=== PATIENT | male | born 1950 | race Caucasian/White ===

== ENCOUNTER 2019-11-11 06:43 | Inpatient (IN) | payer OTHER ==
[~2019-11-11 06:43] MED LIST: BUPIVACAINE INJ/PF LIPOSOME/PF 266 MG/20 ML SDV INJ PRN; CEFAZOLIN INJ 1 GM VIAL IV PRN; IBUPROFEN 800 MG in NORMAL SALINE 250 ML IV PRN; LACTATED RINGERS 1000 ML IV PRN; LIDOCAINE 0.5% INJ-PF (5 MG/ML) 50 ML SDV SUBCUT PRN; OXYCODONE HCL SR 10 MG TABLET PO PRN; PANTOPRAZOLE SODIUM 20 MG TABLET.DR PO PRN; VANCOMYCIN HCL 1,000 MG in DEXTROSE 5%-WATER 250 ML IV PRN
[2019-11-11] MEDS ORDERED: ONDANSETRON HCL INJ/PF 4 MG/2 ML SDV ONE (06:52)
[2019-11-11] MEDS ORDERED: MIDAZOLAM 2 MG/2 ML INJ ONE (06:52)
[2019-11-11] MEDS ORDERED: PROPOFOL INJ 200 MG/20 ML VIAL IV ONE (06:52)
[2019-11-11] MEDS ORDERED: TRANEXAMIC ACID INJ/PF 1,000 MG/10 ML SDV ONE (06:52)
[2019-11-11] MEDS ORDERED: OXYCODONE HCL SR 10 MG TABLET PO ONE (07:44)
[2019-11-11] MEDS ORDERED: CEFAZOLIN INJ 1 GM VIAL ONE (07:44)
[2019-11-11] MEDS ORDERED: BUPIVACAINE INJ/PF LIPOSOME/PF 266 MG/20 ML SDV ONE (08:43)
[2019-11-11] MEDS ORDERED: PROMETHAZINE HCL INJ 25 MG/1 ML VIAL IV PRN (09:32)
[2019-11-11] MEDS ORDERED: FENTANYL CITRATE INJ/PF 100 MCG/2 ML AMPUL IV PRN ×3 (09:32)
[2019-11-11] MEDS ORDERED: MORPHINE SULFATE 10 MG/ML INJ IV PRN (09:32)
[2019-11-11] MEDS ORDERED: MEPERIDINE HCL/PF INJ 25 MG/1 ML DISP.SYRIN IV PRN (09:32)
[2019-11-11] MEDS ORDERED: DIPHENHYDRAMINE HCL 50 MG/ML VIAL IV PRN ×2 (09:32→10:04)
--- NOTE | 2019-11-11 10:03 | Operative Report ---
Operative Report DATE OF SURGERY: 11/11/19 PREOPERATIVE DIAGNOSIS: Right knee arthritis OPERATION: Right knee arthroplasty SURGEON: NAINA RODGERS ANESTHESIA: Spinal TISSUE REMOVED OR ALTERED: Bone to pathology PROCEDURE: Implants used: Femur: Jose triathlon size 5 CR femur uncemented Tibia: 5 uncemented tibia Tibial liner: 9 mm CS insert Patella: 35 mm uncemented patella Procedure with the patient supine on the operating table the right the limb is prepped and draped in a sterile fashion. The limb was elevated for exsanguination and the tourniquet inflated to 280 torr. A standard midline median parapatellar approach the knee is taken. Access is gained to the femoral canal through the intercondylar notch. Intramedullary alignment instrumentation used to resect 10 mm of distal femur in 5 of valgus. Sizing guide indicated a size 5 femur. Appropriate cutting jig is then used to fashion anterior posterior and chamfer cuts. A trial reduction femurs performed and this is judged to be adequate. Attention was next turned to the tibia. Using an extra medullary alignment system 9 millimeters was resected off the lateral tibial plateau. This is sized to a size 5 tibia. A trial reduction was now performed with a 5 femur and a 5 tibia using a[] millimeters spacer. It is full extension and central patellofemoral tracking. The articular surface the patella was next resected using an oscillating saw. All trial implants were removed. The above implants are impacted into position. The tourniquet was deflated hemostasis obtained the wound is then closed in layers using interrupted Vicryl followed by loretta. A sterile compressive dressing was applied and the patient returned to recovery room in satisfactory condition.
[2019-11-11] MEDS ORDERED: ZOLPIDEM TARTRATE 5 MG TABLET PO PRN (10:04)
[2019-11-11] MEDS ORDERED: ONDANSETRON 4 MG TAB.RAPDIS PO PRN (10:04)
[2019-11-11] MEDS ORDERED: ACETAMINOPHEN 325 MG TABLET PO PRN (10:04)
[2019-11-11] MEDS ORDERED: MAG HYDROX/AL HYDROX/SIMETH SUSP 30 ML UDCUP PO PRN (10:04)
[2019-11-11] MEDS ORDERED: RINGERS SOLUTION,LACTATED 1,000 ML IV PRN (10:04)
[2019-11-11] MEDS ORDERED: ONDANSETRON HCL INJ/PF 4 MG/2 ML SDV IV PRN (10:04)
--- NOTE | 2019-11-11 11:09 | RADIOLOGY REPORT (SQ) ---
EXAM DESCRIPTION: KNEE RIGHT 2 VIEWS COMPLETED DATE/TIME: 11/11/2019 10:50 am REASON FOR STUDY: Post OP -Long Cassette in PACU M17.11 UNILATERAL PRIMARY OSTEOARTHRITIS, RIGHT KN EE COMPARISON: None. NUMBER OF VIEWS: Two views. TECHNIQUE: AP and lateral radiographic images acquired of the right knee. LIMITATIONS: None. FINDINGS: MINERALIZATION: Normal. BONES: Status post TKA. The hardware is in anatomic alignment. There is no periprosthetic fracture. JOINT: See below. SOFT TISSUES: Intra-articular and subcutaneous emphysema. OTHER: Vascular calcifications and cutaneous surgical loretta. IMPRESSION: Status post TKA with expected immediate postoperative findings. TECHNICAL DOCUMENTATION: JOB ID: [id number] 2010 [email or web address]- All Rights Reserved Reading location - IP/workstation name: [email or web address]
[2019-11-11] MEDS ORDERED: DEXTROSE 50%-WATER SYRINGE 25 GM/50 ML DOSE IV PRN (11:30)
[2019-11-11] MEDS ORDERED: GLUCAGON,HUMAN RECOMB 1 MG INJ IM PRN (11:30)
[2019-11-11] MEDS ORDERED: DEXTROSE 40% GEL 15 GM TUBE X 2 PO PRN (11:30)
[2019-11-11] MEDS ORDERED: DEXTROSE 40% GEL 15 GM TUBE PO PRN (11:30)
[2019-11-11] MEDS ORDERED: DEXTROSE 50%-WATER SYRINGE 12.5 GM/25 ML DOSE IV PRN (11:30)
[2019-11-11] MEDS ORDERED: TRANEXAMIC ACID INJ/PF 1,000 MG/10 ML SDV IV ONE (11:30)
[2019-11-11] MEDS ORDERED: PHENYLEPHRINE HCL INJ/PF 10 MG/1 ML SDV ONE (13:47)
[2019-11-11] MEDS: OXYCODONE HCL IR 5 MG TABLET PO PRN ×2 (14:32→16:23)
[2019-11-11] MEDS: LISINOPRIL 10 MG TABLET PO SCH (16:30)
[2019-11-11] MEDS: METFORMIN HCL 500 MG TABLET PO SCH (17:05)
[2019-11-11] MEDS: CILOSTAZOL 100 MG TABLET PO SCH (17:05)
[2019-11-11] MEDS: GLIPIZIDE XL 5 MG TAB.ER.24 PO SCH (17:06)
[2019-11-11] MEDS: SENNOSIDES/DOCUSATE 8.6-50 MG 1 EACH TABLET PO SCH (17:06)
[2019-11-11] MEDS: IBUPROFEN 800 MG in NORMAL SALINE 250 ML IV SCH (17:06)
[2019-11-11] MEDS: INSULIN LISPRO 100 UNIT/ML 3 ML VIAL SUBCUT SCH ×2 (18:21→21:17)
[2019-11-11] MEDS: OXYCODONE HCL SR 10 MG TABLET PO SCH (21:19)
[2019-11-11] MEDS ORDERED: VANCOMYCIN HCL 1,000 MG in DEXTROSE 5%-WATER 250 ML IV ONE (22:05)
[2019-11-12] MEDS: IBUPROFEN 800 MG in NORMAL SALINE 250 ML IV SCH ×3 (01:09→17:43)
[2019-11-12] MEDS: OXYCODONE HCL IR 5 MG TABLET PO PRN ×3 (02:09→17:40)
[2019-11-12 05:04] LABS: HEMATOCRIT 32.4 % (37.9-51.0); HEMOGLOBIN 10.8 g/dL (13.5-17.0); MEAN CORPUSCULAR HEMOGLOBIN 28.4 pg (27.0-33.4); MEAN CORPUSCULAR HGB CONC 33.3 g/dL (32.0-36.0); MEAN CORPUSCULAR VOLUME 85 fl (80-97); PLATELET COUNT 191 10^3/uL (150-450); RED BLOOD COUNT 3.79 10^6/uL (4.35-5.55); RED CELL DISTRIBUTION WIDTH 14.5 % (11.5-14.0); WHITE BLOOD COUNT 9.4 10^3/uL (4.0-10.5)
[2019-11-12 05:34] LABS: ANION GAP 10 (5-19); BLOOD UREA NITROGEN 16 mg/dL (7-20); CALCIUM 8.2 mg/dL (8.4-10.2); CARBON DIOXIDE 23 mmol/L (22-30); CHLORIDE 102 mmol/L (98-107); GLUCOSE 218 mg/dL (75-110); POTASSIUM 4.2 mmol/L (3.6-5.0)
[2019-11-12] MEDS ORDERED: CHLORPROMAZINE HCL INJ 25 MG/1 ML AMPULE IV ONE (07:00)
--- NOTE | 2019-11-12 07:08 | PDOC DISCHARGE SUMMARY ---
Impression - Admit/DC Date/PCP Admission Date/Primary Care Provider: 11/11/19 06:43 TY GARCIA, DO Discharge Date: 11/12/19 - Additional Information Resuscitation Status: Full Code Discharge Diet: Regular Discharge Activity: Balance Activity w/Rest, No tub bath Referrals: NAINA RODGERS MD [ACTIVE STAFF] - 11/26/19 2:15 pm Home Medications: Aspirin 81 mg PO DAILY 11/06/19 Atorvastatin Calcium [Lipitor] 80 mg PO QHS 11/06/19 Cholecalciferol (Vitamin D3) [Vitamin D3 1000 Unit Tablet] 1,000 unit PO DAILY 11/06/19 Cilostazol [Pletal 100 mg Tablet] 100 mg PO BID 11/06/19 Diclofenac Sodium 75 mg PO BID 11/06/19 Folic Acid/Vit B Complex and C [Super B Complex Tablet] 1 tab PO DAILY 11/06/19 Glipizide [Glipizide Xl] 10 mg PO BID 11/06/19 Lisinopril [Zestril] 40 mg PO DAILY 11/06/19 Metformin HCl 500 mg PO BID 11/06/19 Metoprolol Succinate [Toprol Xl 50 mg Tab.sr] 50 mg PO DAILY 11/06/19 Multivit-Min/Folic/Vit K/Lycop [Men's Multivitamin Tablet] 1 tab PO DAILY 11/06/19 Pantoprazole Sodium 40 mg PO DAILY 11/06/19 Sertraline HCl 150 mg PO DAILY 11/06/19 Ubidecarenone [Coq-10] 200 mg PO DAILY 11/06/19 History of Present Illiness History of Present Illness: CECIL BENNETT JR is a 69 year old male Healthy [id number] white male with progressive right knee pain and functional disability second osteoarthritis. Patient is admitted for elective right knee arthroplasty. Hospital Course Hospital Course: Open wounds no lateral for that instrumented fusion is necessary and patient is admitted through the operating where he undergoes uncomplicated right knee arthroplasty. Is returned to the floor in satisfactory condition. He seen by physical therapy for weightbearing sterile ambulation. Overnight he developed problems with hiccups and is administered Thorazine. Compressive dressing is removed on the first postoperative day. Underlying OpSite dressing is clean dry and intact. He subsequently for discharge home with home health services and DME. Physical Exam Vital Signs: Temp Pulse Resp BP Pulse Ox 38.2 C H 108 H 18 147/55 H 90 L 11/12/19 01:13 11/12/19 01:13 11/12/19 01:13 11/12/19 01:13 11/12/19 01:13 Intake & Output 11/11/19 11/12/19 11/13/19 06:59 06:59 06:59 Intake Total 7649 Output Total 5009 Balance 2640 Weight 100.6 kg General appearance: PRESENT: no acute distress Head exam: PRESENT: normocephalic Respiratory exam: PRESENT: unlabored Cardiovascular exam: PRESENT: RRR Pulses: PRESENT: +1 pedal pulses bilateral GI/Abdominal exam: PRESENT: soft Rectal exam: PRESENT: deferred Results Laboratory Results: WBC 9.4 10^3/uL (4.0-10.5) 11/12/19 04:54 RBC 3.79 10^6/uL (4.35-5.55) L 11/12/19 04:54 Hgb 10.8 g/dL (13.5-17.0) L 11/12/19 04:54 Hct 32.4 % (37.9-51.0) L 11/12/19 04:54 MCV 85 fl (80-97) 11/12/19 04:54 MCH 28.4 pg (27.0-33.4) 11/12/19 04:54 MCHC 33.3 g/dL (32.0-36.0) 11/12/19 04:54 RDW 14.5 % (11.5-14.0) H 11/12/19 04:54 Plt Count 191 10^3/uL (150-450) 11/12/19 04:54 Sodium 135.3 mmol/L (137-145) L 11/12/19 04:54 Potassium 4.2 mmol/L (3.6-5.0) 11/12/19 04:54 Chloride 102 mmol/L (98-107) 11/12/19 04:54 Carbon Dioxide 23 mmol/L (22-30) 11/12/19 04:54 Anion Gap 10 (5-19) 11/12/19 04:54 BUN 16 mg/dL (7-20) 11/12/19 04:54 Creatinine 0.81 mg/dL (0.52-1.25) 11/12/19 04:54 Est GFR ( Amer) > 60 (>60) 11/12/19 04:54 Est GFR (MDRD) Non-Af > 60 (>60) 11/12/19 04:54 Glucose 218 mg/dL (75-110) H 11/12/19 04:54 POC Glucose 248 mg/dL (70-110) H 11/12/19 05:58 Calcium 8.2 mg/dL (8.4-10.2) L 11/12/19 04:54 Impressions: Knee X-Ray 11/11/19 10:06 IMPRESSION: Status post TKA with expected immediate postoperative findings. Plan Plan of Treatment: Discharge home on a weightbearing as tolerated basis with home health services and DME. Follow-up with Dr. Rodgers and [facility] for surgery in 2 weeks for staple removal. Stroke Is this a Stroke Patient?: No Stroke Pt being discharged on Anti-thrombolytic therapy?: Yes Acute Heart Failure - Is this a Heart Failure Patient?: No
[2019-11-12] MEDS ORDERED: CHLORPROMAZINE HCL INJ 25 MG/1 ML AMPULE ONE (07:24)
[2019-11-12] MEDS: INSULIN LISPRO 100 UNIT/ML 3 ML VIAL SUBCUT SCH ×4 (07:37→21:44)
[2019-11-12] MEDS: METOPROLOL SUCCINATE 50 MG TAB.SR.24H PO SCH ×4 (08:01→09:56)
[2019-11-12] MEDS ORDERED: METOPROLOL TARTRATE PF/INJ 5 MG/5 ML SDV IV ONE (08:45)
[2019-11-12 08:48] LABS: ARTERIAL BLOOD BASE EXCESS -3.3 mmol/L; ARTERIAL BLOOD H2CO3 1.08 mmol/L (1.05-1.35); ARTERIAL BLOOD HCO3 21.2 mmol/L (20-24); ARTERIAL BLOOD O2 SATURATION 97.8 % (94-98); ARTERIAL BLOOD PCO2 35.8 mmHg (35-45); ARTERIAL BLOOD PH 7.39 (7.35-7.45); ARTERIAL BLOOD PO2 105.7 mmHg (80-100); ARTERIAL BLOOD TOTAL CO2 22.3 mmol/L (23-27)
[2019-11-12 08:54] LABS: ARTERIAL BLOOD FIO2 100%
[2019-11-12] MEDS ORDERED: NORMAL SALINE 500 ML IV PRN (09:33)
--- NOTE | 2019-11-12 09:39 | RADIOLOGY REPORT (SQ) ---
EXAM DESCRIPTION: CHEST SINGLE VIEW COMPLETED DATE/TIME: 11/12/2019 8:48 am REASON FOR STUDY: CLINICAL AIDE COMPARISON: None. EXAM PARAMETERS: NUMBER OF VIEWS: One view. TECHNIQUE: Single frontal radiographic view of the chest acquired. RADIATION DOSE: NA LIMITATIONS: None. FINDINGS: LUNGS AND PLEURA: Suboptimal inspiration. No opacities, masses or pneumothorax. No pleura l effusion. MEDIASTINUM AND HILAR STRUCTURES: No masses. Contour normal. HEART AND VASCULAR STRUCTURES: Heart normal in size. Normal vasculature. BONES: No acute findings. HARDWARE: None in the chest. OTHER: No other significant finding. IMPRESSION: NO ACUTE RADIOGRAPHIC FINDING IN THE CHEST. TECHNICAL DOCUMENTATION: JOB ID: [id number] 2010 [employer]- All Rights Reserved Reading location - IP/workstation name: [email or web address]
[2019-11-12] MEDS: SENNOSIDES/DOCUSATE 8.6-50 MG 1 EACH TABLET PO SCH ×2 (09:42→17:41)
[2019-11-12] MEDS: METFORMIN HCL 500 MG TABLET PO SCH ×2 (09:42→17:41)
[2019-11-12] MEDS: PANTOPRAZOLE SODIUM 40 MG TABLET.DR PO SCH (09:42)
[2019-11-12] MEDS: GLIPIZIDE XL 5 MG TAB.ER.24 PO SCH ×2 (09:42→17:41)
[2019-11-12] MEDS: ATORVASTATIN CALCIUM 80 MG TABLET PO SCH (09:43)
[2019-11-12] MEDS: ASPIRIN 81 MG TABLET, CHEWABLE PO SCH (09:43)
[2019-11-12] MEDS: PRENATAL VITAMIN W DHA CAPSULE PO SCH (09:56)
[2019-11-12] MEDS ORDERED: METOPROLOL SUCCINATE 50 MG TAB.SR.24H PO SCH (10:00)
[2019-11-12] MEDS ORDERED: LISINOPRIL 10 MG TABLET PO SCH (10:00)
[2019-11-12] MEDS ORDERED: (PENDING PHARMACY ID) (Lisinopril [Zestril] 40 MG) PO SCH (10:00)
[2019-11-12] MEDS: LISINOPRIL 10 MG TABLET PO SCH (10:29)
[2019-11-12] MEDS: OXYCODONE HCL SR 10 MG TABLET PO SCH ×2 (10:41→21:43)
[2019-11-12] MEDS: SERTRALINE HCL 50 MG TABLET PO SCH (10:41)
[2019-11-12] MEDS: CILOSTAZOL 100 MG TABLET PO SCH ×2 (10:41→17:41)
[2019-11-12] MEDS ORDERED: BACLOFEN 10 MG TABLET PO PRN (13:19)
--- NOTE | 2019-11-12 15:14 | PDOC CONSULTATION ---
Consultation Consult Date: 11/12/19 Attending physician:: ANINA DUNCAN Provider Consulted: HARMAN FOSS Consult reason:: hiccups History of Present Illness Admission Date/PCP: 11/11/19 06:43 TY GARCIA DO Patient complains of: hiccups History of Present Illness: CECIL BENNETT JR is a 69 year old male with a history of type 2 diabetes yani litus, hypertension, GERD, who presents to the hospital for elective right total knee replacement for his knee arthritis. Procedure was done yesterday. Patient was reported to have received spinal anesthesia and propofol/Versed were used. Patient notably did not get intubated. Patient developed several bouts of hiccups overnight into today. Received some Thorazine this morning but it caused patient to be very unresponsive and lethargic as a result of which rapid response was called earlier today. Patient was stabilized and chest x-ray performed showed no acute abnormality. 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 Hospitalist service consulted for management of hiccups. Patient reports that he barely ever has hiccups when at home and may be gets it once in 1 or 2 months if so and that his hiccups only started after the procedure yesterday. Patient denies any sore throat. He does endorse history of indigestion and GERD. Denies any weakness in arms or legs or other extremities. Past Medical History Cardiac Medical History: Reports: Hypertension Denies: Atrial Fibrillation, Congestive Heart Failure, Coronary Artery Disease, Myocardial Infarction, Hyperlipidema, Peripheral Vascular Disease, Heart Murmur Pulmonary Medical History: Denies: Asthma, Bronchitis, Chronic Obstructive Pulmonary Disease (COPD), Pneumonia, Sleep Apnea Neurological Medical History: Denies: Seizures Endocrine Medical History: Reports: Hypothyroidism Denies: Hyperthyroidism GI Medical History: Reports: Gastroesophageal Reflux Disease Denies: Crohn's Disease, Hiatal Hernia Musculoskeltal Medical History: Reports: Arthritis Denies: Fibromyalgia Psychiatric Medical History: Reports: Post Traumatic Stress Disorder Denies: Bipolar Disorder, Depression Hematology: Denies: Anemia Past Surgical History Past Surgical History: Reports: Herniorrhaphy Denies: Appendectomy, Cholecystectomy, Colostomy, Coronary Artery Bypass Graft, Gastric Bypass Surgery, Pacemaker, Tonsillectomy Social History Smoking Status: Former Smoker Hx Recreational Drug Use: No Hx Prescription Drug Abuse: No Family History Family History: Other - Heart disease in his father Parental Family History Reviewed: Yes Children Family History Reviewed: NA Sibling(s) Family History Reviewed.: NA Medication/Allergy Home Medications: Cholecalciferol (Vitamin D3) [Vitamin D3 1000 Unit Tablet] 1,000 unit PO DAILY 11/06/19 Folic Acid/Vit B Complex and C [Super B Complex Tablet] 1 tab PO DAILY 11/06/19 Multivit-Min/Folic/Vit K/Lycop [Men's Multivitamin Tablet] 1 tab PO DAILY 11/06/19 RX: Aspirin 81 mg PO DAILY 11/06/19 RX: Atorvastatin Calcium [Lipitor] 80 mg PO QHS 11/06/19 RX: Cilostazol [Pletal 100 mg Tablet] 100 mg PO BID 11/06/19 RX: Diclofenac Sodium 75 mg PO BID 11/06/19 RX: Glipizide [Glipizide Xl] 10 mg PO BID 11/06/19 RX: Lisinopril [Zestril] 40 mg PO DAILY 11/06/19 RX: Metformin HCl 500 mg PO BID 11/06/19 RX: Pantoprazole Sodium 40 mg PO DAILY 11/06/19 RX: Sertraline HCl 150 mg PO DAILY 11/06/19 Ubidecarenone [Coq-10] 200 mg PO DAILY 11/06/19 Metoprolol Tartrate [Lopressor 50 mg Tablet] 50 mg PO DAILY 11/12/19 Allergies/Adverse Reactions: chlorpromazine [From Thorazine] Allergy (Severe, Verified 11/12/19 13:09) Passed out Review of Systems Constitutional: ABSENT: chills Eyes: ABSENT: visual disturbances Nose, Mouth, and Throat: ABSENT: headache(s) Cardiovascular: ABSENT: chest pain Respiratory: ABSENT: dyspnea Gastrointestinal: ABSENT: abdominal pain, nausea, vomiting Musculoskeletal: ABSENT: muscle weakness Integumentary: ABSENT: diaphoresis Neurological: ABSENT: confusion, dizziness, focal weakness, tingling Psychiatric: ABSENT: anxiety Endocrine: ABSENT: polydipsia Hematologic/Lymphatic: ABSENT: lymphadenopathy Physical Exam Vital Signs: Temp Pulse Resp BP Pulse Ox 98.9 F 100 18 113/55 L 94 11/12/19 10:00 11/12/19 10:00 11/12/19 10:00 11/12/19 10:00 11/12/19 10:00 Intake & Output 11/11/19 11/12/19 11/13/19 06:59 06:59 06:59 Intake Total 7649 990 Output Total 5009 300 Balance 2640 690 Weight 100.6 kg General appearance: PRESENT: no acute distress, cooperative Head exam: PRESENT: normocephalic Eye exam: PRESENT: EOMI, other - Narrow pupils bilaterally about 2 mm Mouth exam: PRESENT: neck supple Neck exam: ABSENT: JVD, meningismus Respiratory exam: PRESENT: clear to auscultation tanya, unlabored. ABSENT: tachypnea, wheezes Cardiovascular exam: PRESENT: +S1, +S2, systolic murmur GI/Abdominal exam: PRESENT: soft. ABSENT: rebound, rigid, tenderness Neurological exam: PRESENT: alert, awake, oriented to person, oriented to place, oriented to time, oriented to situation Psychiatric exam: ABSENT: agitated, anxious Focused psych exam: ABSENT: pressured speech Skin exam: ABSENT: jaundice Results Laboratory Results: 11/12/19 04:54 11/12/19 04:54 11/12/19 11/12/19 11/12/19 04:54 04:54 08:25 WBC 9.4 RBC 3.79 L Hgb 10.8 L Hct 32.4 L MCV 85 MCH 28.4 MCHC 33.3 RDW 14.5 H Plt Count 191 Carbonic Acid 1.08 HCO3/H2CO3 Ratio 19:1 ABG pH 7.39 ABG pCO2 35.8 ABG pO2 105.7 H ABG HCO3 21.2 ABG O2 Saturation 97.8 ABG Base Excess -3.3 FiO2 100% Sodium 135.3 L Potassium 4.2 Chloride 102 Carbon Dioxide 23 Anion Gap 10 BUN 16 Creatinine 0.81 Est GFR ( Amer) > 60 Glucose 218 H Calcium 8.2 L Impressions: Knee X-Ray 11/11/19 10:06 IMPRESSION: Status post TKA with expected immediate postoperative findings. Chest X-Ray 11/12/19 08:11 IMPRESSION: NO ACUTE RADIOGRAPHIC FINDING IN THE CHEST. Assessment and Plan - Diagnosis (1) Intractable hiccups Is this a current diagnosis for this admission?: Yes Plan: Currently patient's electrolytes look unremarkable. No evidence of uremia. Potential factors that are likely causing his hiccups include recent anesthesia and GERD. Given that his hiccups seem to have started after his surgical procedure yesterday, and that he states that he rarely gets hiccups may be once every 1 to 2 months prior to hospitalization, strongly believing that his symptoms are a side effect from anesthesia. We will try baclofen 10 mg 3 times daily as needed for hiccups. Would avoid Thorazine in light of this morning's event. Continue Protonix given history of GERD and indigestion. Can also try some Maalox for his indigestion. (2) Diabetes mellitus type 2 in obese Is this a current diagnosis for this admission?: Yes Plan: Blood glucose uncontrolled today but nurse tells me that patient was given some sugar tabs overnight. Continue metformin and glipizide and maintain sliding scale insulin. Outpatient follow-up with PCP. (3) Hypertension Qualifiers: Hypertension type: essential hypertension Qualified Code(s): I10 - Essential (primary) hypertension Is this a current diagnosis for this admission?: Yes Plan: Continue patient's lisinopril. - Plan Summary Summary: Discussed plan with Dr. Duncan - Time Time Spent with patient: 35 or more minutes
--- NOTE | 2019-11-12 17:06 | EKG REPORT ---
SEVERITY:- ABNORMAL ECG - JUNCTIONAL TACHYCARDIA : Confirmed by: Ese Glass MD 12-Nov-2019 17:06:24
[2019-11-13] MEDS: IBUPROFEN 800 MG in NORMAL SALINE 250 ML IV SCH ×2 (01:14→10:30)
[2019-11-13 05:11] LABS: HEMATOCRIT 29.7 % (37.9-51.0); HEMOGLOBIN 10.1 g/dL (13.5-17.0); MEAN CORPUSCULAR HGB CONC 33.9 g/dL (32.0-36.0); MEAN CORPUSCULAR VOLUME 86 fl (80-97); PLATELET COUNT 176 10^3/uL (150-450); RED BLOOD COUNT 3.48 10^6/uL (4.35-5.55); RED CELL DISTRIBUTION WIDTH 14.6 % (11.5-14.0); WHITE BLOOD COUNT 9.2 10^3/uL (4.0-10.5)
[2019-11-13] MEDS: INSULIN LISPRO 100 UNIT/ML 3 ML VIAL SUBCUT SCH ×2 (07:28→12:00)
[2019-11-13] MEDS: ATORVASTATIN CALCIUM 80 MG TABLET PO SCH (09:33)
[2019-11-13] MEDS: LISINOPRIL 10 MG TABLET PO SCH (09:33)
[2019-11-13] MEDS: METOPROLOL SUCCINATE 50 MG TAB.SR.24H PO SCH (09:33)
[2019-11-13] MEDS: OXYCODONE HCL SR 10 MG TABLET PO SCH (09:33)
[2019-11-13] MEDS: METFORMIN HCL 500 MG TABLET PO SCH (09:33)
[2019-11-13] MEDS: PRENATAL VITAMIN W DHA CAPSULE PO SCH (09:33)
[2019-11-13] MEDS: ASPIRIN 81 MG TABLET, CHEWABLE PO SCH (09:34)
[2019-11-13] MEDS: SERTRALINE HCL 50 MG TABLET PO SCH (09:34)
[2019-11-13] MEDS: PANTOPRAZOLE SODIUM 40 MG TABLET.DR PO SCH (09:34)
[2019-11-13] MEDS: SENNOSIDES/DOCUSATE 8.6-50 MG 1 EACH TABLET PO SCH (09:34)
[2019-11-13] MEDS: GLIPIZIDE XL 5 MG TAB.ER.24 PO SCH (09:36)
[2019-11-13] MEDS: CILOSTAZOL 100 MG TABLET PO SCH (09:36)
[2019-11-13 11:12] VITALS: BP 133/57
--- NOTE | 2019-11-13 18:52 | PDOC PROGRESS REPORT ---
Subjective Progress Note for:: 11/13/19 Subjective:: Encountered patient this morning. Patient states that hiccups have completely resolved. Patient denies any other complaints besides just pain in his knee. Reason For Visit: RIGHT KNEE ARTHRITIS Physical Exam Vital Signs: Temp Pulse Resp BP Pulse Ox 98.6 F 109 H 20 133/57 H 95 11/13/19 11:11 11/13/19 11:11 11/13/19 11:11 11/13/19 11:11 11/13/19 11:11 Intake & Output 11/12/19 11/13/19 11/14/19 06:59 06:59 06:59 Intake Total 7649 2280 250 Output Total 5009 2000 Balance 2640 280 250 Weight 100.6 kg 97.6 kg General appearance: PRESENT: no acute distress, cooperative Neck exam: ABSENT: JVD Respiratory exam: PRESENT: clear to auscultation tanya Cardiovascular exam: PRESENT: +S1, +S2 Neurological exam: PRESENT: alert, awake, oriented to person, oriented to place, oriented to time Results Laboratory Results: 11/13/19 04:58 11/12/19 04:54 11/13/19 04:58 WBC 9.2 RBC 3.48 L Hgb 10.1 L Hct 29.7 L MCV 86 MCH 29.0 MCHC 33.9 RDW 14.6 H Plt Count 176 Impressions: Knee X-Ray 11/11/19 10:06 IMPRESSION: Status post TKA with expected immediate postoperative findings. Chest X-Ray 11/12/19 08:11 IMPRESSION: NO ACUTE RADIOGRAPHIC FINDING IN THE CHEST. Assessment and Plan - Diagnosis (1) Intractable hiccups Is this a current diagnosis for this admission?: Yes Plan: Currently patient's electrolytes look unremarkable. No evidence of uremia. Potential factors that are likely causing his hiccups include recent anesthesia and GERD. Given that his hiccups seem to have started after his surgical procedure yesterday, and that he states that he rarely gets hiccups may be once every 1 to 2 months prior to hospitalization, strongly believing that his symptoms are a side effect from anesthesia. Completely resolved at this point (2) Diabetes mellitus type 2 in obese Is this a current diagnosis for this admission?: Yes Plan: Blood glucose still elevated but acceptable for discharge. Continue metformin and glipizide and maintain sliding scale insulin. Outpatient follow-up with PCP. (3) Hypertension Qualifiers: Hypertension type: essential hypertension Qualified Code(s): I10 - Essential (primary) hypertension Is this a current diagnosis for this admission?: Yes Plan: Continue patient's lisinopril. - Time Time Spent with patient: Less than 15 minutes
== END 2019-11-13 14:00 | disposition home health service (06) | DRG 470 ==
LOC: INOR 06:43 → 4W 11:36
PROVIDERS: ADMIT Orthopaedic Surgery; ATTEND Orthopaedic Surgery
PROC: 0SRC0JA Replacement of Right Knee Joint with Synthetic Substitute, Uncemented, Open Approach (ICD-10-PCS; principal; 2019-11-11 08:45)
DX: M17.11 Unilateral primary osteoarthritis, right knee (principal); F43.10 Post-traumatic stress disorder, unspecified; T88.59XA Other complications of anesthesia, initial encounter; R41.82 Altered mental status, unspecified; R06.6 Hiccough; R53.83 Other fatigue; T43.3X5A Adverse effect of phenothiazine antipsychotics and neuroleptics, initial encounter; Y92.230 Patient room in hospital as the place of occurrence of the external cause; I10 Essential (primary) hypertension; E11.9 Type 2 diabetes mellitus without complications; F41.9 Anxiety disorder, unspecified; F32.9 Major depressive disorder, single episode, unspecified; K21.9 Gastro-esophageal reflux disease without esophagitis; E78.00 Pure hypercholesterolemia, unspecified; Z87.891 Personal history of nicotine dependence; Z79.82 Long term (current) use of aspirin; Z79.84 Long term (current) use of oral hypoglycemic drugs; Z79.899 Other long term (current) drug therapy
CPT/HCPCS: 01402; 36415; 36600; 71045; 80048; 82803; 82962; 85027; 88305; 88311; 93005; 93010; 94799; C9290; J0690; J1741; J1815; J2250; J2370; J2405; J2704; J3230; J3370; J3490; J7040; J7050; J7060; S0119

== ENCOUNTER → 2020-04-03 | Outpatient (CLI) | payer OTHER ==
--- NOTE | 2020-04-03 14:25 | RADIOLOGY REPORT (SQ) ---
EXAM DESCRIPTION: LUMBAR SPINE COMPLETE IMAGES COMPLETED DATE/TIME: 04/03/2020 1:23 pm REASON FOR STUDY: LUMBAGO WITH SCIATICA, RIGHT SIDE M54.41 LUMBAGO WITH SCIATICA, RIGHT SIDE COMPARISON: None. NUMBER OF VIEWS: Five views including obliques. TECHNIQUE: AP, lateral, oblique, and sacral radiographic images acquired of the lumbar spine. LIMITATIONS: None. FINDINGS: MINERALIZATION: Normal. SEGMENTATION: Normal. No transitional anatomy. ALIGNMENT: Grade 1 anterolisthesis of L4 on L5. VERTEBRAE: Mild wedging at T11 and T12. Age is indeterminate. DISCS: Disc space narrowing at L4-L5 and L5-S1. POSTERIOR ELEMENTS: Pedicles and facets are intact. No pars defect or posterior arch defects. HARDWARE: None in the spine. PARASPINAL SOFT TISSUES: Normal. PELVIS: Intact as visualized. No fractures or worrisome bone lesions. SI joints intact. OTHER: No other significant finding. IMPRESSION: Mild spondylosis most marked at L4-L5 and L5-S1. Slight anterolisthesis of L4 on L5. TECHNICAL DOCUMENTATION: JOB ID: [id number] 2010 [employer]- All Rights Reserved Reading location - IP/workstation name: [email or web address]
== END ==
LOC: OD 11:54
PROVIDERS: ATTEND Family Medicine
DX: M54.41 Lumbago with sciatica, right side (principal); M47.817 Spondylosis without myelopathy or radiculopathy, lumbosacral region
CPT/HCPCS: 72110